=== PATIENT | female | born 1960 | race Caucasian/White ===

== ENCOUNTER 2017-07-07 07:22 | Outpatient (CLI) | END 2017-07-07 13:30 | disposition home or self-care (01) ==

== ENCOUNTER 2017-08-23 05:30 | Day surgery (SDC) | END 2017-08-23 09:40 | disposition home or self-care (01) ==

== ENCOUNTER 2018-01-12 08:37 | Day surgery (SDC) | END 2018-01-12 12:58 | disposition home or self-care (01) ==